=== PATIENT | male | born 1985 | race Caucasian/White ===

== ENCOUNTER 2024-02-27 10:09 | Outpatient (CLI) | payer OTHER, SELFPAY ==
--- OUTSIDE RECORDS SUMMARY | 2024-02-28 10:24 | XMS_ITS | Clinical Summary ---
Author Organization [place] Address [facility] [place] [address] Care Team Providers Care Business Sales Consultant Name Role Phone Clinic, [facility] Primary Care Provider Allergies No known active allergies Medications oxyCODONE-aceta minophen (PERCOCET) 5-325 MG per tablet Take 2 tablets by mouth every 6 hours as needed for moderate to severe pain 15 tablet 0 5 Active amoxicillin-cla vulanate (AUGMENTIN) 875-125 MG tablet Take 1 tablet by mouth 2 times daily 15 tablet 2 Active ondansetron (ZOFRAN) 4 MG tablet Take 1 tablet (4 mg) by mouth every 8 hours as needed for nausea 10 tablet 2 Active oxyCODONE (ROXICODONE) 5 MG tablet Take 1 tablet (5 mg) by mouth every 6 hours as needed for severe pain 8 tablet 4 Active polyethylene glycol (GOLYTELY) 236 g suspensionIndic ations:Divertic ulitis of colon 2 days prior at 5pm, mix and drink half of a jug of Golytely. Drink an 8 oz. glass of Golytely every 15 minutes until half of the jug is gone. Place remainder of Golytely in the refrigerator. 1 day prior at 5 pm, drink the 2nd half of a jug of Golytely bowel prep. 6 hours before your check-in time, drink an 8 oz. glass of Golytely every 15 minutes until half of the 2nd jug of Golytely is gone. Discard remainder of second jug. 8000 mL 4 Active bisacodyl (DULCOLAX) 5 MG EC tabletIndicatio ns:Diverticulit is of colon 2 days prior to procedure, take 2 tablets at 4 pm. 1 day prior to procedure, take 2 tablets at 4 pm. For additional instructions refer to your colonoscopy prep instructions. 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 Gender Identity Not on file Sexual Orientation Not on file Last Filed Vital Signs Vital Sign Reading Time Taken Comments Blood Pressure 122/75 09/01/2023 1:19 AM CDT Pulse 92 09/01/2023 1:20 AM CDT Temperature 36.5 ??C (97.7 ??F) 08/31/2023 11:50 PM C DT Respiratory Rate 18 09/01/2023 1:19 AM CDT Oxygen Saturation 98% 09/01/2023 1:20 AM CDT Inhaled Oxygen Concentration - - Weight 95.3 kg (210 lb) 08/31/2023 11:50 PM CDT Height 167.6 cm (5' 6) 08/31/2023 11:50 PM CDT Body Mass Index 33.89 08/31/2023 11:50 PM CDT Plan of Treatment Health Maintenance Due Date Last Done Comments ADVANCE CARE PLANNING 1984 ANNUAL REVIEW OF HM ORDERS 1984 YEARLY PREVENTIVE VISIT 1984 HIV SCREENING 1999 HEPATITIS C SCREENING 2002 HEPATITIS B IMMUNIZATION (1 of 3 - 19+ 3-dose series) 2003 PHQ-2 (once per calendar year) 2023 COVID-19 Vaccine ( - 2023-2 5 season) 2023 INFLUENZA VACCINE (#1) 2023 05/14/2020 GLUCOSE 08/31/2026 09/01/2023, 03/22/2022 DTAP/TDAP/TD IMMUNIZATION (2 - Td or Tdap) 01/05/2029 01/05/2019 RSV VACCINE (1 - 1-dose 75+ series) 2059 HPV IMMUNIZATION Aged Out No longer e ligible based on patient's age to complete this topic MENINGITIS IMMUNIZATION Aged Out No l onger eligible based on patient's age to complete this topic Pneumococcal Vaccine: Pediatrics (0 to 5 Years) and At-Risk Patients (6 to 64 Years) Aged Out No longer eligible b ased on patient's age to complete this topic RSV MONOCLONAL ANTIBODY Aged Out No l onger eligible based on patient's age to complete this topic Procedures Procedure Name Priority Date/Time Associated Diagnosis Comments COMPREHENSIVE METABOLIC PANEL STAT 09/01/2023 12:08 AM CDT from Last 3 Months or Most Recently Relevant to Health Maintenance Results * (ABNORMAL) Comprehensive metabolic panel (09/01/2023 12:08 AM CDT) Sodium 138 135 - 145 mmol/L 09/01/2023 12:31 AM CDT [facility] Comment:Reference intervals for this test were updated on 01/24/2023 to more accurately reflect our healthy population. There may be differences in the flagging of prior results with similar values performed with this method. Interpretation of those prior results can be made in the context of the updated reference intervals. Potassium 3.9 3.4 - 5.3 mmol/L 09/01/2023 12:31 AM CDT [facility] Carbon Dioxide (CO2) 28 22 - 29 mmol/L 09/01/2023 12:31 AM CDT [facility] Anion Gap 10 7 - 15 mmol/L 09/01/2023 12:31 AM CDT [facility] Urea Nitrogen 11.2 6.0 - 20.0 mg/dL 09/01/2023 12:31 AM CDT [facility] Creatinine 0.80 0.67 - 1.17 mg/dL 09/01/2023 12:31 AM CDT [facility] GFR Estimate >90 >60 mL/min/1. 73m2 09/01/2023 12:31 AM CDT [facility] Calcium 9.4 8.6 - 10.0 mg/dL 09/01/2023 12:31 AM CDT [facility] Chloride 100 98 - 107 mmol/L 09/01/2023 12:31 AM CDT [facility] Glucose 106(H) 70 - 99 mg/dL 09/01/2023 12:31 AM CDT [facility] Alkaline Phosphatase 126 40 - 150 U/L 09/01/2023 12:31 AM CDT [facility] Comment:Reference intervals for this test were updated on 03/14/2023 to more accurately reflect our healthy population. There may be differences in the flagging of prior results with similar values performed with this method. Interpretation of those prior results can be made in the context of the updated reference intervals. AST 39 0 - 45 U/L 09/01/2023 12:31 AM CDT [facility] Comment:Reference intervals for this test were updated on 10/10/2022 to more accurately reflect our healthy population. There may be differences in the flagging of prior results with similar values performed with this method. Interpretation of those prior results can be made in the context of the updated reference intervals. ALT 124(H) 0 - 70 U/L 09/01/2023 12:31 AM CDT [facility] Comment:Reference intervals for this test were updated on 10/10/2022 to more accurately reflect our healthy population. There may be differences in the flagging of prior results with similar values performed with this method. Interpretation of those prior results can be made in the context of the updated reference intervals. Protein Total 8.2 6.4 - 8.3 g/dL 09/01/2023 12:31 AM CDT [facility] Albumin 4.5 3.5 - 5.2 g/dL 09/01/2023 12:31 AM CDT [facility] Bilirubin Total 0.7 <=1.2 mg/dL 09/01/2023 12:31 AM CDT [facility] Blood BLOOD SPECIMEN / Unknown Venipuncture / Unknown 09/01/2023 12:08 AM CDT 09/01/2023 12:11 AM CDT us Yaquelin Anne DO LAB - BLOOD ORDERABLES Fin al Result LABORATORY [facility] [address] Lab (1st floor, no room number) [place] [address], [facility] from Last 3 Months or Most Recently Relevant to Health Maintenance Care Teams Business Sales Consultant Relationship Specialty Start Date End Date [facility], [address] [address] PCP - General 01/05/19
--- OUTSIDE RECORDS SUMMARY | 2024-02-28 10:24 | XMS_ITS | Referral Summary ---
Author Organization [place] Address [facility] [place] [address] Care Team Providers Care Cold Press Loader Name Role Phone Clinic, [facility] Primary Care Provider Allergies No known active [...] to your colonoscopy prep instructions. 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 Gender Identity Not on file Sexual Orientation [...] 08/31/2023 11:50 PM CDT Plan of Treatment Not on file Procedures Procedure Name Priority Date/Time Associated Diagnosis [...] 3.4 - 5.3 mmol/L 09/01/2023 12:31 AM [facility] Carbon Dioxide (CO2) 28 22 - 29 mmol/L 09/01/2023 12:31 AM [facility] Anion Gap 10 7 - 15 mmol/L 09/01/2023 12:31 AM [facility] Urea Nitrogen 11.2 6.0 - 20.0 mg/dL 09/01/2023 12:31 AM [facility] Creatinine 0.80 0.67 - 1.17 mg/dL 09/01/2023 12:31 AM [facility] GFR Estimate >90 >60 mL/min/1. 73m2 09/01/2023 12:31 AM [facility] Calcium 9.4 8.6 - 10.0 mg/dL 09/01/2023 12:31 AM [facility] Chloride 100 98 - 107 mmol/L 09/01/2023 12:31 AM [facility] Glucose 106(H) 70 - 99 mg/dL 09/01/2023 12:31 AM [facility] Alkaline Phosphatase 126 40 - 150 U/L 09/01/2023 12:31 AM [facility] Comment:Reference intervals for this test were updated on 03/14/2023 to more accurately reflect our healthy population. There may be differences in the flagging of prior results with similar values performed with this method. Interpretation of those prior results can be made in the context of the updated reference intervals. AST 39 0 - 45 U/L 09/01/2023 12:31 AM [facility] Comment:Reference intervals for this test were updated on 10/10/2022 to more accurately reflect our healthy population. There may be differences in the flagging of prior results with similar values performed with this method. Interpretation of those prior results can be made in the context of the updated reference intervals. ALT 124(H) 0 - 70 U/L 09/01/2023 12:31 AM [facility] Comment:Reference intervals for this test were [...] LAB - BLOOD ORDERABLES Fin al Result [facility] Acute [facility] Lab [address] Lab (1st floor, no room number) [place] [address], [facility] from Last 3 Months or Most Recently Relevant to Health Maintenance Care Teams Cold Press Loader Relationship Specialty Start Date End Date Clinic, [address] [address] PCP - General 01/05/19
--- OUTSIDE RECORDS SUMMARY | 2024-02-28 10:24 | XMS_ITS | Encounter Summary ---
Author Organization [place] Address [facility] [place] [address] Care Team Providers Care Educational Technologist Name Role Phone Clinic, [facility] Primary Care Provider Reason for Visit * Reason Onset Date Comments Pt. Information/instruction 10/02/2023 Marlette noscopy Encounter Details Date Type Department Care Team ([facility] st Contact Info) Description 10/02/2023 Telephone [facility] Endoscopy [address] [place] [address] Annie Jacob RN Pt. 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 No answer. Left message to return call to [phone] option 4 Callback required communication sent via letter. Annie Jacob RN Endoscopy Procedure Pre Assessment * Telephone Encounter - Annie Jacob RN - 10/02/2023 7:50 AM CDT Pre visit planning completed. Procedure details: Patient scheduled for Colonoscopy on 10.12.2023. Arrival time: 1200. Procedure time 1245 Facility location: [facility]; [place] [address]. Check in location: Main entrance at front desk coordinator. Come through the roundabout underneath the awning (not the ER entrance). Sedation type: Conscious sedation Pre op exam needed? N/A Indication for procedure: Diverticulitis Chart review: Electronic implanted devices? No Recent diagnosis of diverticulitis within the last 6 weeks? No Diverticulitis on 08.31.2023 Diabetic? No Medication review: Anticoagulants? No NSAIDS? No NSAID medications per patient's medication list. RN will verify with pre-assessment call. Other medication HOLDING recommendations: N/A Prep for procedure: Bowel prep recommendation: Extended Golytely. Bowel prep prescription sent to [id number] - [place], [place] - [address] Due to: constipation noted or reported. ER visit on 08.31.2023 reported constipation Prep instructions sent via [facility] CRC team had sent standard miralax Annie Jacob RN Endoscopy Procedure Pre dean of boys [phone] option 4 documented in this encounter Plan of Treatment Not on file documented as of this encounter Visit Diagnoses Diagnosis Diverticulitis of colon- Primary Diverticulitis of colon (without mention of hemorrhage) documented in this encounter Care Teams Educational Technologist Relationship Specialty Start Date End Date [facility], [address] [address] PCP - General 01/05/19 documented as of this encounter
== END 2024-02-27 10:10 | disposition home or self-care (01) ==
LOC: NFLDREF 02-28 10:22
PROVIDERS: PCP Family Medicine; Referring Provider Family Medicine; Visit Provider Physician Assistant Medical
DX: R10.9 Unspecified abdominal pain (principal); N15.9 Renal tubulo-interstitial disease, unspecified; M54.9 Dorsalgia, unspecified; M54.6 Pain in thoracic spine; N23 Unspecified renal colic
CPT/HCPCS: 87086